=== PATIENT | female | born 1975 | race Caucasian/White ===

== ENCOUNTER → 2016-08-04 | Outpatient (CLI) | payer OTHER ==
[~2016-08-04] MED LIST: /CLON1TA OR; /CLON1TA PO; /DULO30CA OR; /ESOM40CA OR; /FENT25PA; /FENT25PA TOP; AMIT25TA10 PO; ATIV0.5T OR; B COCAP5 OR; CETI10TA OR; CLAR5CHW; CLAR5CHW OR; CRANCAP11 PO; DILA2TAB2 PO; EXALGO PO; FIORICET PO; FLEXERIL; FLEXERIL PO; HYDR12.56 PO; HYDR4TAB PO; IBUP600T OR; LORA10TA2 PO; META10CA PO; MULTIVIT OR; MULTTAB4 PO; OPAN10TA16 OR; OPAN10TA17 OR; OPANA IR OR; PERC5TAB8; PHEN-223 PO; PREG100CA; TIZA4CAP PO; VITAMIN D OR; VITAMIN D50000 UNT; XANA0.25 OR; [UNRECOGNIZED DRUG - CODE] PO; [UNRECOGNIZED DRUG - CODE] PO; [UNRECOGNIZED DRUG - OTHER] PO; claritan PO; exalgo PO
--- NOTE | 2016-08-16 00:09 | ECWPNPC ---
PATIENT NAME: TERRY SAM : 1975 GENDER: FEMALE VISIT DATE: 08/04/2016 DISCHARGE DATE: 08/04/16 1338 VISIT LOCKED DATE TIME: PHYSICIAN: EILEEN DELGADO RESOURCE: EILEEN DELGADO REASON FOR APPOINTMENT 1. LEFT SHOULDER AND NECK PAIN W/C HISTORY OF PRESENT ILLNESS NEW PATIENT CONSULT: WHEN DID YOUR PAIN FIRST START? . BRIEFLY DESCRIBE HOW YOUR PAIN STARTED? . HOW DOES YOUR PAIN CHANGE WITH TIME? . DOES YOUR PAIN AWAKEN YOU FROM SLEEP? . HOW MANY HOURS OF SLEEP DO YOU NORMALLY GET? . ANY DIAGNOSTIC TESTING? . FACILITY WHERE TESTS WERE DONE? ____. PAIN TREATMENT TREATMENT YES CANCER HAVE YOU EVER HAD ANY TYPE OF CANCER?NO NO. 40 YEAR OLD FEMALE PATIENT WITH HISTORY OF CHRONIC LEFT SHOULDER AND NECK PAIN. PATIENT DESCRIBES THE PAIN ACHING, BURNING, SHARP, STABBING, TENDER, THROBBING, SORE AND SHOOTING WITH A PAIN SCORE OF 6/10. 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 PATIENT RECEIVED A DCS IN 2003, HAD A REVISION OF THE SYSTEM IN 2004, AND HAD A SYMPATHECTOMY IN 2005. PATIENT STATES THAT FOR SOME TIME THESE PROCEDURES HELPED GREATLY BUT RECENTLY THE PAIN IS STARTED TO RETURN. CURRENTLY THE PATIENT IS USING CYMBALTA AND IBUPROFEN TO AID IN PAIN RELIEF. MRS. SAM STATES THAT IT IS VERY DIFFICULT TO MOVE HER ARM AT ALL AND IT IS VERY SENSITIVE TO MOVEMENT AND TEMPERATURE CHANGES. PATIENT DENIES UNEXPLAINABLE WEIGHT LOSS, FEVER, CHILLS, NEW CHANGES ON HER URINARY OR BOWEL CONTROL. PAIN SCREENING: PATIENT HAS A COMPLAINT OF ACUTE OR CHRONIC PAIN YES FALL RISK SCREENING: SCREENING :NO FALLS IN THE PAST YEAR LENTZ INVENTORY: QUESTIONNAIRE ASSESSEDTBD SCORE VALUE CALCULATED TBD CURRENT MEDICATIONS TAKING CYMBALTA 20 MG CAPSULE DELAYED RELEASE PARTICLES 1 CAPSULE ORALLY TWICE A DAY TAKING NEXIUM 40 MG CAPSULE DELAYED RELEASE 1 CAPSULE ORALLY ONCE A DAY TAKING CLARITIN 10 MG TABLET 1 TABLET ORALLY ONCE A DAY TAKING FLONASE ALLERGY RELIEF 50 MCG/ACT SUSPENSION 1 SPRAY IN EACH NOSTRIL NASALLY ONCE A DAY TAKING IBUPROFEN 800 MG TABLET 1 TABLET ORALLY PRN TID TAKING MULTI COMPLETE - CAPSULE ORALLY NOT-TAKING PREVACID 30 MG CAPSULE DELAYED RELEASE 1 CAPSULE ORALLY ONCE A DAY 40 MG MEDICATION LIST REVIEWED AND RECONCILED WITH THE PATIENT PAST MEDICAL HISTORY RSV LEFT UPPER ARM HTN GERD INTERVERTEBRAL DISC DEGENERATION-CERVICAL UNFERTILITY TENDONITIS ROTATOR CUFF LEFT ALLERGIES WELLBUTRIN: SPYCHOTIC BEHAVIOR CATS SURGICAL HISTORY URETHRA DIALATION 1976 LAPORSCOPIC CYST ON OVERIES AND MISCARRIAGE 1996 DRSAL COLUMN STIMULATOR 2004 SYMPATHETECTOMY 2006 C SECTION 2008 TUBAL REVERSAL 2015 LAPORSCOPIC FOR AHESIONS 2016 FAMILY HISTORY FATHER: ALIVE MOTHER: ALIVE SIBLINGS: ALIVE SON(S): ALIVE DAUGHTER(S): ALIVE SOCIAL HISTORY GENERAL: TOBACCO USE ARE YOU A:FORMER SMOKER LUNG CANCER SCREENING SMOKING STATUS:FORMER SMOKER ALCOHOL SCREENING POINTS3 INTERPRETATIONPOSITIVE RECREATIONAL DRUG USE DRUG USE?NO CAFFEINE CAFFEINE USE?YES 2 TO 3 CUPS A DAY PSYCHOLOGICAL HX TREATMENTNO PAIN CLINIC PFS, CLERGY, PUBLIC HEALTH REFERRALS CLERGY REFERRAL NEEDED?NO WAS THE PROVIDER NOTIFIED OF ANY PERTINENT INFO?NO PFS REFERRAL NEEDED?NO PUBLIC HEALTH REFERRAL NEEDED?NO PATIENT: ____. ADVANCED DIRECTIVES HEALTH CARE PROXY?NO POWER OF APPLICATION SECURITY SPECIALIST?NO HOSPITALIZATION/MAJOR DIAGNOSTIC PROCEDURE NO HOSPITALIZATION HISTORY. REVIEW OF SYSTEMS CONSTITUTIONAL: ANY CHANGE IN YOUR MEDICAL CONDITION? NO . CHILLS NO . FEVER NO . INFECTION: DO YOU HAVE NEW INFECTIONS? NO . DO YOU HAVE HISTORY OF MRSA? NO . MUSCULOSKELETAL: ANY NEW PATTERNS OF PAIN OR NUMBNESS? NO . SYTEMIC LUPUS NO . GASTROENTEROLOGY: ANY NEW CHANGE IN BOWEL CONTROL? NO . BARRETTS ESOPHAGUS NO . CIRRHOSIS NO . HEPATITIS NO . LIVER FAILURE NO . ACID REFLUX NO . UNEXPLAINED WEIGHT LOSS NO . GENITOURINARY: ANY NEW CHANGE IN BLADDER CONTROL? NO . IS THERE A CHANCE YOU COULD BE ? NO . HEMATOLOGY/LYMPH: DO YOU TAKE ANY BLOOD THINNERS? (FOR EXAMPLE- COUMADIN, PLAVIX, AGGRENOX, PLATEL, PRADAXA, OR XARELTO) NO . WHEN WAS YOUR LAST DOSE? DATE: TIME: . LOW PLATELET COUNT NO . SICKLE CELL DISEASE NO . VON WILLIEBRANDS NO . FACTOR V LEIDEN NO . THALLASEMIA NO . ANEMIA NO . EASY BRUISING NO . NEUROLOGY: HAVE YOU FALLEN IN THE PAST 6 MONTHS? YES . ANY NEW EXTREMITY NUMBNESS OR WEAKNESS? NO . HEAD INJURY NO . DEMENTIA NO . CEREBRAL PALSY NO . MULTIPLE SCLEROSIS NO . DIZZINESS NO . HEADACHE NO . STROKES NO . VERTIGO NO . CARDIOLOGY: DO YOU HAVE A PACEMAKER OR DEFIBRILLATOR? NO . ANGINA NO . HEART ATTACK NO . HEART SURGERY NO . CONGESTIVE HEART FAILURE/FLUID OVERLOAD NO . CHEST PAIN NO . HIGH BLOOD PRESSURE NO . IRREGULAR HEART BEAT NO . RESPIRATORY: HAVE YOU BEEN SICK IN THE PAST WEEK? NO . FEVER NO . FLU LIKE SYMPTOMS? NO . CPAP NO . BYPAP NO . ASTHMA NO . EMPHYSEMA NO . CHRONIC LUNG DISEASES NO . SHORTNESS OF BREATH ON EXERTION NO . DO YOU USE ANY TYPE OF TOBACCO (SMOKE, SMOKELESS, CHEW)? NO . COUGH NO . SNORING NO . INTEGUMENTARY: DO YOU HAVE ANY RASHES OR OPEN SORES? NO . ALLERGIC/IMMUNO: ARE YOU ALLERGIC TO SHELLFISH OR IV DYE? YES . ANY NEW ALLERGIES? NO . PSYCHIATRIC: DO YOU HAVE THOUGHTS OF HURTING YOURSELF OR SOMEONE ELSE? NO . ARE YOU ABUSED, NEGLECTED, OR IN AN UNSAFE ENVIRONMENT? NO . ENDOCRINOLOGY: ARE YOU DIABETIC? NO . THYROID DISORDER NO . OTHER: DO YOU NEED ANY PRESCRIPTIONS? NO . IF YES, PLEASE LIST: ____ . ANY NEW PROBLEMS WITH YOUR MEDICATIONS? NO . WHEN DID YOU LAST EAT? ____ . WHEN DID YOU LAST DRINK? ____ . WHAT DID YOU LAST DRINK? ____ . NAME OF PERSON DRIVING YOU HOME? ____ . DO YOU HAVE ANY OTHER QUESTIONS OR CONCERNS NO . REVIEWED BY: PROVIDER: EILEEN DELGADO MD . VITAL SIGNS WT 265 LBS, HT 69 IN, BMI 39.13 INDEX, BP 160/98 MM HG, HR 96 /MIN, RR 18 /MIN, TEMP 97.4 F, OXYGEN SAT % 98%. EXAMINATION : PATIENT IS ALERT O X 3 AND COOPERATIVE. PATIENT PROTECT LEFT SHOULDER FROM COLD. LEFT SHOULDER APPEARS TO SIT HIGHER THEN THE RIGHT. PATIENT ABLE TO ABDUCT NIGHT SHOULDER 90 DEGREES AND THE LEFT 45 DEGREES WITH DIFFICULTY. ALLODYNIA OVER RIGHT SHOULDER AND HYPERPATHIA SURROUNDING THE SHOULDER TO THE CERVICAL AREA. LEFT SHOULDER MORE RED IN COLOR THEN THE RIGHT. ASSESSMENTS POLYNEUROPATHY, UNSPECIFIED - G62.9 (PRIMARY) LEFT SHOULDER NEUROPATHY. TREATMENT POLYNEUROPATHY, UNSPECIFIED NOTES: WE DISCUSSED SEVERAL ISSUES WITH MRS. SAM'S PAIN MANAGEMENT CASE. AT THIS TIME THE PATIENT WILL INCREASE THE CYMBALTA TO 2 TIMES A DAY TO SEE IF IT WILL ASSIST WITH THE NEUROPATHIC PAIN THE PATIENT IS EXPERIENCING. PATIENT REPORTS THE DCS NOT WORKING FOR THE PAST 8 YEARS AT THIS TIME I WOULD LIKE TO DO A STUDY UNDER FLUOROSCOPY TO SEE WHERE THE LEADS ARE. NO INTERVENTIONS WILL BE HELD AT THIS TIME. PATIENT WILL RETURN IN ONE MONTH TO DISCUSS MEDICATIONS AND SEE WHAT OPTIONS ARE AVAILABLE FOR THE DCS. INSTRUCTIONS WERE GIVEN, QUESTIONS WERE ANSWERED, PATIENT REPORTS UNDERSTANDING AND AGREES WITH THE PLAN. I, GINA MILLER, DOCUMENTED THE ABOVE INFORMATION ACTING A SCRIBE FOR DR. DELGADO. I HAVE REVIEWED THE ABOVE DOCUMENT, WRITTEN BY GINA BARAJASIBEmily AND I VERIFY THAT IT IS ACCURATE. OTHERS REFILL CYMBALTA CAPSULE DELAYED RELEASE PARTICLES, 30 MG, 1 CAPSULE, ORALLY FOR PAIN, TWICE A DAY MDD2, 30 DAY(S), 60, REFILLS 1 PROCEDURES PN WORKMANS' COMP OPINION IN YOUR OPINION, WAS THE INCIDENT THAT THE PATIENT DESCRIBED THE COMPETENT MEDICAL CAUSE OF THIS INJURY/ILLNESS? YES ARE THE PATIENT'S COMPLAINTS CONSISTENT WITH HIS/HER HISTORY OF THE INJURY/ILLNESS? YES IS THE PATIENT'S HISTORY OF THE INJURY/ILLNESS CONSISTENT WITH YOUR OBJECTIVE FINDING? YES WHAT IS THE PERCENTAGE OF TEMPORARY IMPAIRMENT? MODERATE TO MARKED = 66.7% IS THE PATIENT WORKING? NO DOCTOR ON SITE: EILEEN LOZADA MD PROCEDURE CODES FA211 ESTABILISHED PATIENT [facility] FACILITY CHARGE G8427 DOC MEDS VERIFIED W/PT OR RE G8730 PAIN ASSESS POS TOOL F/U PLAN DOC FOLLOW UP 4 WEEKS ELECTRONICALLY SIGNED BY EILEEN DELGADO MD ON 08/15/2016 AT 08:05 PM EST DISCLAIMER : THIS IS A VISIT SUMMARY EXTRACTED FROM THE [employer] CHART. IT IS NOT A COPY OF THE [employer] PROGRESS NOTE. MTDD
== END ==
LOC: M PAIN 11:20
PROVIDERS: ATTEND Anesthesiology
DX: G89.29 Other chronic pain (principal); G62.9 Polyneuropathy, unspecified; M25.512 Pain in left shoulder; M50.30 Other cervical disc degeneration, unspecified cervical region; I10 Essential (primary) hypertension; K21.9 Gastro-esophageal reflux disease without esophagitis; L23.81 Allergic contact dermatitis due to animal (cat) (dog) dander; Z88.8 Allergy status to other drugs, medicaments and biological substances; Z79.1 Long term (current) use of non-steroidal anti-inflammatories (NSAID); Z79.899 Other long term (current) drug therapy

== ENCOUNTER → 2019-06-14 | Outpatient (CLI) | payer MEDICARE ==
[~2019-06-14] MED LIST changes: -/CLON1TA OR; -/CLON1TA PO; -/DULO30CA OR; -/ESOM40CA OR; -/FENT25PA; -/FENT25PA TOP; +CLON-412 OR; +CLON-412 PO; +CYMB1CAP5 OR; -DILA2TAB2 PO; +DILA2TAB6 PO; +FENT1DIS14; +FENT1DIS14 TOP; +NEXI1CAP3 OR; -PHEN-223 PO; +PHEN30CA2 PO
--- NOTE | 2019-06-14 13:13 | REP ---
Clinical: Trauma. Pain. Technique: AP, lateral, bilateral oblique views left hand . Findings: The osseous structures and joint spaces are intact and normal. There is no evidence for acute fracture or dislocation. Surrounding soft tissues are unremarkable. No subcutaneous emphysema or radiodense foreign body. Impression: No acute fracture or dislocation. Electronically Signed by Surendra Richards MD 06/14/2019 01:04 P
== END ==
LOC: M WUC 12:50
PROVIDERS: ATTEND Nurse Practitioner Family
DX: M79.642 Pain in left hand (principal)

== ENCOUNTER 2025-06-28 11:50 | Emergency (ER) | payer BC, MEDICARE ==
[~2025-06-28] VITALS: Ht 177.8 cm; Wt 124.0 kg
[~2025-06-28 11:50] MED LIST changes: -PHEN30CA2 PO; +PHEN30CA21 PO
[2025-06-28 12:54] LABS: BASO # 0.0 10^3/uL (0.0-0.2); BASO % 0.6 % (0.0-1.0); EOS # 0.1 10^3/uL (0.0-0.5); EOS % 1.8 % (0.0-3.0); LYMPH # 3.1 10^3/uL (1.5-5.0); LYMPH % 44.9 % (24.0-44.0); MONO # 0.5 10^3/uL (0.0-0.8); MONO % 7.0 % (2.0-8.0); NEUTROPHILS # 3.1 10^3/uL (1.5-8.5); NEUTROPHILS % 45.4 % (36.0-66.0); PLATELET COUNT, AUTOMATED 239 10^3/uL (150-450)
[2025-06-28 13:04] LABS: ALT/SGPT 30 U/L (7.0-40); AST/SGOT 28 U/L (<34); CALCIUM LEVEL 9.1 MG/DL (8.5-10.1); CARBON DIOXIDE LEVEL 24 MMOL/L (20-31); CHLORIDE LEVEL 103 MMOL/L (98-107); CREATININE FOR GFR 0.37 MG/DL (0.55-1.30); GLOMERULAR FILTRATION RATE > 90.0 (>51); POTASSIUM SERUM 3.9 MMOL/L (3.5-5.1); SODIUM LEVEL 139 MMOL/L (136-145)
[2025-06-28 13:05] LABS: KETONE, URINE AUTO RFX 1+ mg/dL (NEGATIVE); LEUKOCYTE ESTERASE UR AUTO RFX NEGATIVE (NEGATIVE); MUCUS, URINE RFX SMALL (NEGATIVE); NITRITE, URINE AUTO RFX NEGATIVE (NEGATIVE); RBC, URINE AUTO RFX 0 /HPF (0-3); SQUAM EPITHELIAL CELL UR AURFX 17 /HPF (0-6); URINE PREG TEST NEGATIVE (NEGATIVE); WBC, URINE AUTO RFX 1 /HPF (0-3)
[2025-06-28] MEDS ORDERED: ISOVUE-370 76% 100 ML VIAL As Ordered ONE (14:17)
[2025-06-28] MEDS: ACETAMINOPHEN *IV* 1,000 MG in IV 1 EA IV ONE (14:35)
[2025-06-28] MEDS: KETOROLAC 30 MG/ML 1 ML VIAL IV ONE (14:35)
[2025-06-28] MEDS: ONDANSETRON 4MG/2ML VIAL IV ONE (15:26)
[2025-06-28] MEDS ORDERED: PERC5TAB12 PO ×2 (17:18→17:26)
[2025-06-28 17:35] VITALS: BP 166/86; TEMP 97.6; O2SAT 99
[2025-06-29] MEDS ORDERED: OXYC1TAB23 (12:20)
== END 2025-06-28 17:43 | disposition home or self-care (01) ==
LOC: M ED 11:50
DX: N83.292 Other ovarian cyst, left side (principal); R10.32 Left lower quadrant pain; Z79.1 Long term (current) use of non-steroidal anti-inflammatories (NSAID); Z79.899 Other long term (current) drug therapy
CPT/HCPCS: 74177; 76830; 76856; 80048; 80076; 81001; 83690; 84703; 85025; 93976; 96374; 96375; 99284; J0134; J1885; J2405; J3010; Q9967

== ENCOUNTER 2025-06-29 12:13 | Observation (INO) | payer BC, MEDICARE ==
[~2025-06-29] VITALS: Ht 177.8 cm; Wt 124.5 kg
[~2025-06-29 12:13] MED LIST changes: +PERC5TAB12 PO
[2025-06-29] MEDS ORDERED: OXYC1TAB23 (12:20)
[2025-06-29] MEDS: ONDANSETRON 4MG/2ML VIAL IV ONE (16:20)
[2025-06-29] MEDS: ACETAMINOPHEN *IV* 1,000 MG in IV 1 EA IV ONE (16:20)
[2025-06-29] MEDS ORDERED: LIDOCAINE 2% 100 MG/5 ML SDV (FOR ANES.) As Ordered ONE (18:56)
[2025-06-29] MEDS ORDERED: dexAMETHasone 4 MG/ML 1 ML VIAL As Ordered ONE (18:57)
[2025-06-29] MEDS ORDERED: ROCURONIUM BROMIDE 50MG/5ML VIAL As Ordered ONE (18:57)
[2025-06-29] MEDS ORDERED: ONDANSETRON 4MG/2ML VIAL As Ordered ONE (18:57)
[2025-06-29] MEDS ORDERED: MIDAZOLAM INJ 2 MG/2 ML VIAL As Ordered ONE (18:58)
[2025-06-29] MEDS ORDERED: KETOROLAC 30 MG/ML 1 ML VIAL As Ordered ONE (19:00)
[2025-06-29] MEDS ORDERED: SUGAMMADEX SODIUM 200 MG/2 ML VIAL As Ordered ONE (20:09)
[2025-06-29] MEDS ORDERED: HYDROMORPHONE HCL 0.5 MG/0.5 ML SYRINGE IV PRN (20:15)
[2025-06-29] MEDS ORDERED: ALBUTEROL SULFATE 2.5 MG/0.5 ML INH CONCENTRATE NEB SOLN INH PRN (20:15)
[2025-06-29] MEDS ORDERED: ONDANSETRON 4MG/2ML VIAL IV PRN (20:25)
[2025-06-29] MEDS ORDERED: PERCOCET 5MG/325MG TAB PO PRN (20:25)
[2025-06-29] MEDS: ONDANSETRON 4MG/2ML VIAL IV PRN (21:02)
[2025-06-29] MEDS: LR 1,000 ML IV SCH (21:12)
[2025-06-29 21:20] VITALS: BP 138/67; TEMP 98; O2SAT 95
[2025-06-29] MEDS: DOCUSATE SODIUM 100 MG CAPSULE PO SCH (21:27)
[2025-06-29 21:54] VITALS: BP 130/66; TEMP 97.6; O2SAT 92
[2025-06-29 22:51] VITALS: BP 119/62; TEMP 97.6; O2SAT 95
[2025-06-29 23:55] VITALS: BP 113/55; TEMP 98.1; O2SAT 94
[2025-06-30] VITALS (8 sets, daily range): BP systolic 101–130; BP diastolic 55–70; TEMP 98–98.4; O2SAT 93–97
[2025-06-30] MEDS: KETOROLAC 30 MG/ML 1 ML VIAL IV PRN (04:13)
[2025-06-30] MEDS ORDERED: IBUP600T42 PO (06:38)
[2025-06-30] MEDS ORDERED: OXYC1TAB23 PO (06:41)
== END 2025-06-30 09:52 | disposition home or self-care (01) ==
LOC: M ED 12:13 → M SDC 18:24 → M RR INP 18:25 → M MSPAV 21:07
PROVIDERS: ADMIT Specialist; ATTEND Specialist
DX: N83.8 Other noninflammatory disorders of ovary, fallopian tube and broad ligament (principal); K66.0 Peritoneal adhesions (postprocedural) (postinfection); R10.22 Pelvic and perineal pain left side; I10 Essential (primary) hypertension; E11.9 Type 2 diabetes mellitus without complications; J45.909 Unspecified asthma, uncomplicated; E66.01 Morbid (severe) obesity due to excess calories; Z96.82 Presence of neurostimulator; Z79.899 Other long term (current) drug therapy
CPT/HCPCS: 58661; 88305; 96374; 96375; 96376; 99285; J0134; J0665; J1100; J1885; J2250; J2405; J3010